=== PATIENT | female | born 1990 | race African-American/Black ===

== ENCOUNTER 2019-07-21 06:55 | Emergency (ER) | payer OTHER ==
[~2019-07-21] VITALS: Ht 180.3 cm; Wt 70.0 kg
[2019-07-21] MEDS ORDERED: SODIUM CHLORIDE 0.9% 1,000 ML IV ONE (07:25)
[2019-07-21 07:54] LABS: BASOPHILS % 0.6 % (0.0-2.0); EOSINOPHILS % 2.1 % (0.0-5.0); HEMATOCRIT. 37.4 % (36.0-48.0); LYMPHOCYTES % 47.3 % (20.0-50.0); MEAN CORPUSCULAR HEMOGLOBIN 32.3 pg (28.0-32.0); MEAN CORPUSCULAR VOLUME 92.6 fL (81.0-99.0); MEAN PLATELET VOLUME 7.5 fl (7.4-10.4); MONOCYTES % 5.9 % (2.0-8.0); NEUTROPHILS % 44.1 % (40.0-76.0); PLATELET 298 x1000/uL (130-400); RED BLOOD CELL COUNT 4.03 mill/uL (4.2-5.4); RED CELL DISTRIBUTION WIDTH 12.8 % (11.6-14.6)
[2019-07-21 08:00] LABS: INR 0.9; PROTHROMBIN TIME 10.1 sec (9.6-11.0)
[2019-07-21 08:02] LABS: CHLORIDE 104 mEq/L (98-107)
[2019-07-21 09:36] VITALS: BP 122/78
== END 2019-07-21 09:38 | disposition home or self-care (01) ==
LOC: ER 06:55
DX: R42 Dizziness and giddiness (principal); R06.02 Shortness of breath; R05 Cough; R51 Headache
CPT/HCPCS: 36415; 71045; 80053; 81025; 85025; 85610; 93005; 96360; 96361; 99285; J7030